=== PATIENT | female | born 2000 | race Caucasian/White ===

== ENCOUNTER 2024-05-03 14:09 | Emergency (ER) | payer SELFPAY ==
[~2024-05-03] VITALS: Ht 165.1 cm; Wt 84.1 kg
[~2024-05-03 14:09] MED LIST: AMOXICILLIN 8751 TAB PO; FERROUSGLUC256MG; MOTRIN 800800 MG/TAB PO; NORCO 325 MG-51 TAB PO; PRENATAL; ZOFRAN ODT4 MG PO
[2024-05-03 14:21] VITALS: BP 115/67; TEMP 98.9
[2024-05-03 17:07] VITALS: PULSE 108
== END 2024-05-03 17:07 | disposition home or self-care (01) ==
LOC: COL.ER 14:09
DX: R50.9 Fever, unspecified (principal)